=== PATIENT | male | born 1955 | race Caucasian/White ===

== ENCOUNTER → 2016-12-12 | Outpatient (CLI) | payer BC ==
--- NOTE | 2016-12-12 09:37 | CT ---
EXAMINATION TYPE: CT sinus wo con DATE OF EXAM: 12/12/2016 8:06 AM COMPARISON: NONE HISTORY: sinusitis, cough CT DLP: 570.8 mGycm Automated exposure control for dose reduction was used. Helical acquisition through the sinuses. FINDINGS: No air-fluid level to suggest acute sinusitis. No significant mucoperiosteal thickening. Temporomandi bular joints are intact. The orbits show a normal appearance. Ostiomeatal units are patent. Auditory ossicles show symmetric appearance, no thickening of the tympanic membranes. No erosion of the scutum bilaterally. IMPRESSION: NO SIGNIFICANT ABNORMALITIES EVIDENT.
== END | disposition home or self-care (01) ==
LOC: RADCTMAIN 07:52
PROVIDERS: ATTEND Otolaryngology
DX: J32.9 Chronic sinusitis, unspecified (principal)
CPT/HCPCS: 70486

== ENCOUNTER 2019-01-14 07:45 | Day surgery (SDC) | payer BC ==
[2019-01-09 09:20] VITALS: BMI 26.6
[~2019-01-14 07:45] MED LIST: DEXAMETHASONE SOD PHOSPHATE 10 MG/ML 1 ML VIAL IV ONE; HEPARIN SODIUM,PORCINE 5,000 UNIT/ML 1 ML VIAL SQ ONE; MIDAZOLAM (PF) 2 MG/2 ML VIAL IV PRN; ONDANSETRON 4 MG/2 ML VIAL IVP ONE; SCOPOLAMINE 1.5MG/72HR PATCH TRANSDERM ONE; ceFAZolin IN SWFI 2 GM/20 ML SYRINGE IVP ONE
[2019-01-14] MEDS: LACTATED RINGERS 1,000 ML IV SCH (08:29)
[2019-01-14] MEDS: LIDOCAINE 1% 20 ML VIAL (10MG/ML) FOR IV START INTRADERMA PRN ×2 (08:29→08:30)
--- NOTE | 2019-01-14 09:15 | P.ONQ ---
Anesthesiology Proc Note - PNB - Peripheral Nerve Block Performed Left Transversus Abdominis Single Time Out Performed: Yes Procedure Start Time: 08:47 Procedure Stop Time: 08:54 Indication: Acute Post-Operative Pain, Requested by physician (Dr Arango) Sedation Type: Sedate with meaningful contact maintained Preparation: Sterile Prep Position: Supine Catheter: None Needle Types: Facet Needle Size: 100mm (4") Needle Gauge: 20 Technique: Ultrasound (Image saved on chart) Injectate: 0.5% Ropivacaine (see comment for volume) (30 mls) Blood Aspirated: No Pain Paresthesia on Injection Noted: No Resistance on Injection: Normal Events: Uneventful and Well Tolerated
--- NOTE | 2019-01-14 09:17 | P.GSHP ---
History of Present Illness H&P Date: 01/14/19 Chief Complaint: Left inguinal hernia This a 63-year-old male referred from Dr. Angeli marie. Patient presents today for left inguinal hernia repair. Patient developed a tender mass is left groin. Past Medical History Past Medical History: GERD/Reflux, Musculoskeletal Disorder, Osteoarthritis (OA) Additional Past Medical History / Comment(s): Chronic low back and left hip pain. Patient states wound would not heal after shoulder surgery and it was determined he had no infection but it was due to being allergic to the internal sutures. States he needs "hypoallergenic sutures." History of Any Multi-Drug Resistant Organisms: None Reported Past Surgical History: Cholecystectomy, Orthopedic Surgery Additional Past Surgical History / Comment(s): Colonoscopies, wisdom teeth, 2 right knee surgeries, 2 right shoulder surgeries. Past Anesthesia/Blood Transfusion Reactions: No Reported Reaction Past Psychological History: No Psychological Hx Reported Smoking Status: Current every day smoker Past Alcohol Use History: Occasional Additional Past Alcohol Use History / Comment(s): Smokes 1 PPD for last 45-50 yrs. Past Drug Use History: None Reported - Past Family History Father Family Medical History: Cancer Mother Family Medical History: Cancer Brother(s) Family Medical History: Cancer Additional Family Medical History / Comment(s): Thyroid cancer. Medications and Allergies Home Medications Medication Instructions Recorded Confirmed Type Acetaminophen [Tylenol] 500 mg PO Q4-6H PRN 01/09/19 01/09/19 History Antidiarrheal 1 tab PO DIRECTED PRN 01/09/19 01/09/19 History Cetirizine HCl [Zyrtec] 10 mg PO DAILY PRN 01/09/19 01/09/19 History Cholecalciferol [Vitamin D3] 1,000 unit PO DAILY 01/09/19 01/09/19 History Fiber Capsules 1 tab PO DAILY 01/09/19 01/09/19 History Fluticasone Propionate [Flonase 1 spray EA NOSTRIL DAILY PRN 01/09/19 01/09/19 History Allergy Relief] HYDROcodone/APAP 5-325MG [[place] 1 tab PO DAILY PRN 01/09/19 01/09/19 History 5-325] Multivitamins, Thera [Multivitamin 1 tab PO DAILY 01/09/19 01/09/19 History (formulary)] [place]-3 Fatty Acids/Fish Oil [Fish 1 each PO DAILY 01/09/19 01/09/19 History Oil 1,000 mg Softgel] Pantoprazole [Protonix] 40 mg PO AC-BRKFST 01/09/19 01/09/19 History Vitamin B Complex 1 each PO DAILY 01/09/19 01/09/19 History traZODone HCL 50 mg PO HS 01/09/19 01/09/19 History Allergies Allergy/AdvReac Type Severity Reaction Status Date / Time naproxen Allergy Welts Verified 01/09/19 09:22 shellfish derived [Shellfish] Allergy Swelling Verified 01/09/19 09:21 Internal Sutures Allergy Poor wound Uncoded 01/09/19 09:23 healing Surgical - Exam Vital Signs Temp Pulse Resp BP Pulse Ox 98.4 F 54 L 16 118/58 98 01/14/19 08:02 01/14/19 08:02 01/14/19 08:02 01/14/19 08:02 01/14/19 08:02 - General well developed, well nourished, no distress - Eyes PERRL - ENT normal pinna - Neck no masses - Respiratory normal expansion - Cardiovascular Rhythm: regular - Abdomen Abdomen: soft Hernia: inguinal (Reducible left inguinal hernia) Assessment and Plan Assessment: (Hernia. We'll perform laparoscopic robotic-assisted repair.
[2019-01-14] MEDS ORDERED: SUCCINYLCHOLINE CHLORIDE 100 MG/5 ML SYR IV ONE (09:39)
[2019-01-14] MEDS ORDERED: MIDAZOLAM 2 MG/2 ML VIAL ONE (09:39)
[2019-01-14] MEDS ORDERED: PROPOFOL 10 MG/ML 20 ML VIAL IV ONE (09:39)
[2019-01-14] MEDS ORDERED: GLYCOPYRROLATE 0.2 MG/ML 2 ML VIAL ONE (09:39)
[2019-01-14] MEDS ORDERED: ROCURONIUM BROMIDE 10 MG/ML 10 ML VIAL IV ONE (09:39)
[2019-01-14] MEDS ORDERED: ROPIVACAINE 5 MG/ML 30 ML VIAL ONE (09:39)
[2019-01-14] MEDS ORDERED: LIDOCAINE 1% INJ 10MG/ML (20 ML MDV) ONE (09:39)
[2019-01-14] MEDS ORDERED: fentaNYL (PF) 50 MCG/ML 2 ML AMP ONE (09:39)
[2019-01-14] MEDS ORDERED: NEOSTIGMINE 1 MG/ML 10 ML VIAL ONE (09:39)
[2019-01-14] MEDS ORDERED: BUPIVACAIN-EPI 0.25%-1:200,000 30 ML VIAL SQ ONE (10:11)
--- NOTE | 2019-01-14 10:41 | P.OP ---
Date of Procedure: 01/14/19 Preoperative Diagnosis: Left inguinal hernia Postoperative Diagnosis: Left inguinal hernia Procedure(s) Performed: Laparoscopic robotic-assisted repair of left inguinal hernia Excision of left cord lipoma Anesthesia: SAMIR Surgeon: Fredis Arango Estimated Blood Loss (ml): 5 Pathology: other (Left cord lipoma) Condition: stable Disposition: PACU Description of Procedure: The patient's placed on the operating table in the supine position. The patient received general anesthesia. The patient's abdomen was prepped and draped in usual sterile fashion. The skin was anesthetized 1% local Xylocaine at the incision sites. Using an 11 blade a skin incision was made at the umbilicus. The fascia was grasped with a Susie and then the peritoneal cavity was entered with the Veress needle. Position of the Veress needle was confirmed with a positive drop test. After adequate insufflation a 5 mm trocar was placed into the peritoneal cavity. The Laparoscope was placed the peritoneal cavity. And a robotic 8 mm trocar was placed in the right lateral position and then another 8 mm robotic trochars placed in the left lateral position. The original 5 mm trocar was exchanged for a 12 mm trocar. The patient was placed in reverse Trendelenburg and then the patient was docked to the robot. Next the peritoneum over top of the hernia was incised and then using blunt and sharp dissection and electrocautery the hernia sac was dissected free from the floor of the inguinal canal. The cord lipoma was dissected free from the cord structures. The hernia sac was completely reduced into the peritoneal cavity. And then using the Pro soloist dancer mesh the hernia was repaired. The peritoneum was then sutured with 20V lock suture. The patient was then undocked the robot. The needle was withdrawn from the peritoneal cavity. The lipoma was retrieved. The umbilical trocar site was closed with 0 Ethibond suture. The skin was closed interrupted 3-0 Monocryl suture. Dermabond dressing was applied. Patient was sent to recovery in stable condition.
[2019-01-14 10:48] VITALS: TEMP 98.1
[2019-01-14] MEDS: HYDROmorphone 0.5 MG/0.5 ML SYRINGE IVP PRN ×4 (10:59→11:24)
[2019-01-14 11:41] VITALS: RESP 18
[2019-01-14] MEDS ORDERED: HYDROcodone/APAP 7.5-325MG 1 EACH TAB PO ONE (12:47)
[2019-01-14 13:14] VITALS: BP 116/73; PULSE 78
== END 2019-01-14 13:31 | disposition home or self-care (01) ==
LOC: OR 07:45
PROVIDERS: ATTEND Surgery
DX: K40.90 Unilateral inguinal hernia, without obstruction or gangrene, not specified as recurrent (principal); K21.9 Gastro-esophageal reflux disease without esophagitis; M19.90 Unspecified osteoarthritis, unspecified site; F17.210 Nicotine dependence, cigarettes, uncomplicated; Z80.8 Family history of malignant neoplasm of other organs or systems; Z79.899 Other long term (current) drug therapy; Z91.013 Allergy to seafood; Z88.8 Allergy status to other drugs, medicaments and biological substances; Z91.048 Other nonmedicinal substance allergy status; Z79.891 Long term (current) use of opiate analgesic
CPT/HCPCS: 49650; 55559; S2900; 64486; 88304

== ENCOUNTER → 2022-05-17 | Outpatient (CLI) | payer MEDICARE ==
--- NOTE | 2022-05-17 14:11 | EEG ---
ELECTROENCEPHALOGRAM REPORT DATE OF SERVICE: 05/17/2022 PREAMBLE: This is a 67-year-old male with syncope. Current medications: Multivitamins, Aniya, fish oil, trazodone 50 mg. EEG FINDINGS: This is a 21 channel digital EEG recorded with video component, utilizing 10/20 international system with referential and bipolar montages. Background consists of well developed, well regulated moderate voltage activity in 10 hertz alpha. Background is posterior dominant and reactive to eye opening and closing. Some frequent low- voltage fast frequency beta activity was also seen, intermixed with alpha activity. Photic driving response was seen with some flash frequencies. Drowsiness was seen with appearance of bilaterally symmetric theta frequency rhythm. Stage 2 sleep was seen with the presence of vertex waves and sleep spindles. Hyperventilation was not performed. The EKG channel showed no obvious arrhythmia. No focal or generalized epileptiform activity was seen. IMPRESSION: This is a normal EEG during wakefulness, drowsiness and stage 2 sleep. No epileptiform activity was seen. MMODL / IJN: [id number] /
== END ==
LOC: NEUROMAIN 07:48
PROVIDERS: ATTEND Family Medicine
DX: R55 Syncope and collapse (principal); Z91.013 Allergy to seafood; Z88.6 Allergy status to analgesic agent; F17.200 Nicotine dependence, unspecified, uncomplicated
CPT/HCPCS: 95816

== ENCOUNTER → 2023-01-31 | Outpatient (CLI) | payer MEDICARE ==
--- NOTE | 2023-01-31 11:51 | NM ---
EXAMINATION TYPE: NM stress cardiolite complete DATE OF EXAM: 01/31/2023 COMPARISON: NONE HISTORY: Chest pain TECHNIQUE: After the intravenous administration of 10.08 mCi Tc 99m Sestamibi - Rest images obtained 50 minutes post injection. The patient exercised using a ÁLVARO protocol and 1 minute prior to peak exercise was injected with 25.5 mCi Tc 99m Sestamibi - Stress images obtained 10 minutes post inject ion. FINDINGS: Targeted heart rate was achieved during performance of the study. Review of stress and rest SPECT sada ges demonstrates predominantly fixed defect involving the inferior apical myocardium. Small area of s tress-induced reversible ischemia in the differential diagnosis.. Gated analysis shows normal wall m otion with an estimated left ventricular ejection fraction of 55 %. IMPRESSION: 1. Predominantly fixed area of defect involving the inferior apical myocardium. Small area of stress- induced reversible ischemia is not excluded correlate clinically. A Yellow level critical message alert has been initiated for Angeli Suarez DO via the [facility] System on 01/31/2023 11:48 AM. This message alert has been sent to nAgeli Suarez DO via the preferences provided by the clinician for the receipt of Radiology Critical Findings. [facility] e ID [id number].
--- NOTE | 2023-02-01 11:20 | CA ---
Exercise Stress Test Report Name: Darion Raya Exam Date: 01/31/2023 09:31 Exam Location: [place] Stress Ht (in): 68 Wt (lb): 190 BSA: 2.00 Ordering Phys: Angeli Suarez DO Referring Phys: ANDREW,, Technologist: Tom Quevedo Age: 67 Gender: M : 1955 Procedure CPT: Indications: R07.9 ICD-10 Codes: Patient History: DIFFICULTY IN BREATHING, FAMILY HX OF HEART DISEASE, FORMER SMOKER (1.5 PPD X 50 YEARS), COPD, EMPHYSEMA Medications: Meds past 24 hrs: Pretest Chest Pain: STRESS TEST Erasto Protocol Exercise Duration (min:sec): 06:[address] Depressions (mm): Angina Score: Ruiz Score: Resting HR (bpm): Peak HR (bpm): 128 Resting BP (mmHg): 114 / 57 Peak BP (mmHg): 178 / 81 MPHR: 152 Target HR: 129 % MPHR: 84 METS: 7.1 Total Dose: Peak Dose: Atropine: Double Product: 07007 BP Response: Stress Termination: DYSPNEA UNABLE TO CONTINUE Stress Symptoms: DIFFICULTY IN BREATHING Stress Summary: ECG ANALYSIS Resting ECG: Stress ECG: CONCLUSIONS Excellent exercise tolerance Normal EKG in response to exercise Dr. Stanley Cuellar MD (Electronically Signed) Final Date: 01 February 2023 11:20
== END | disposition home or self-care (01) ==
LOC: RADNMMAIN 08:05
PROVIDERS: ATTEND Family Medicine
DX: I51.89 Other ill-defined heart diseases (principal); I45.4 Nonspecific intraventricular block; J43.9 Emphysema, unspecified; R07.9 Chest pain, unspecified; R00.1 Bradycardia, unspecified; Z87.891 Personal history of nicotine dependence
CPT/HCPCS: 93017; 78452; A9500

== ENCOUNTER → 2023-10-29 | Outpatient (CLI) | payer MEDICARE ==
[2023-10-29 12:17] LABS: Basophils % (A) 0 %; Eosinophils # (A) 0.1 k/uL (0-0.7); Eosinophils % (A) 2 %; HCT 45.4 % (39.0-53.0); HGB 15.4 gm/dL (13.0-17.5); Lymphocytes # (A) 1.2 k/uL (1.0-4.8); Lymphocytes % (A) 28 %; MCV 102.7 fL (80.0-100.0); Macrocytosis Slight; Mean Platelet Volume 8.3; Monocytes # (A) 0.4 k/uL (0-1.0); Monocytes % (A) 10 %; Neutrophils # (A) 2.4 k/uL (1.3-7.7); Neutrophils % (A) 56 %; Platelet Count 277 k/uL (150-450); RBC 4.42 m/uL (4.30-5.90); RDW 12.6 % (11.5-15.5); WBC 4.3 k/uL (3.8-10.6)
== END | disposition home or self-care (01) ==
LOC: LABWHC1 10:06
PROVIDERS: ATTEND Physician Assistant Medical
DX: D72.819 Decreased white blood cell count, unspecified (principal)
CPT/HCPCS: 36415; 85025